=== PATIENT | male | born 1995 | race Two or more races ===

== ENCOUNTER 2021-06-10 05:00 | Emergency (ER) | payer MEDICAID ==
[~2021-06-10] VITALS: Ht 170.2 cm; Wt 62.6 kg
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
--- NOTE | 2021-06-10 05:45 | NUR ---
PATIENT VERBALLY YELLING AND CURSING THREATENING STAFF EMPLOYEES AND [employer] OFFICERS AT BEDSIDE
--- NOTE | 2021-06-10 06:00 | NUR ---
MD AT BEDSIDE, PATIENT BEING VERY AGGRESSIVE TOWARD MEDICAL STAFF AND MAKING THREATENING REMARKS. PATIENT NOT COOPERATING WITH MD SARABIA OR MEDICAL STAFF. PATIENT TRYING TO BREAK OFF BED SIDE RAILS YELLING LOUDLY AND CURSING.
[2021-06-10] MEDS ORDERED: diphenhydrAMINE HCL 50 MG/ML VIAL ONE (06:05)
[2021-06-10] MEDS ORDERED: HALOPERIDOL LACTATE INJ 5 MG/ML VIAL ONE (06:05)
[2021-06-10] MEDS ORDERED: LORAZEPAM INJ 2 MG/ML VIAL ONE (06:20)
[2021-06-10] MEDS ORDERED: LORAZEPAM INJ 2 MG/ML VIAL IM ONE (06:30)
[2021-06-10] MEDS ORDERED: diphenhydrAMINE HCL 50 MG/ML VIAL IM ONE (06:30)
[2021-06-10] MEDS ORDERED: HALOPERIDOL LACTATE INJ 5 MG/ML VIAL IM ONE (06:30)
--- NOTE | 2021-06-10 06:38 | NUR ---
PATIENT DISPLAYING AGGRESSIVE BEHAVIOR TOWARDS STAFF. LAB UNABLE TO DRAW AT THIS TIME.
[2021-06-10] MEDS ORDERED: LIDOCAINE /MPF 1% VIAL 5 ML VIAL ONE (07:40)
--- NOTE | 2021-06-10 07:50 | NUR ---
UNABLE TO SUTURE THE LACERATION PT UNCOOPERTATIVE.
[2021-06-10 07:58] LABS: CALCIUM, SERUM 9.4 mg/dL (8.5-10.1); CARBON DIOXIDE 27 mmol/L (21-32); CHLORIDE 103 mmol/L (98-107); CREATININE 1.2 mg/dL (0.6-1.3); GLUCOSE 97 mg/dL (74-106); POTASSIUM 3.8 mmol/L (3.5-5.1); SODIUM SERUM 140 mmol/L (136-145); UREA NITROGEN, BLOOD 20 mg/dL (7-18)
[2021-06-10 08:04] LABS: BASOPHILS % (AUTO) 0.4 % (0.0-2.0); EOSINOPHILS % (AUTO) 0.1 % (0.0-6.0); HEMATOCRIT 43 % (39-51); LYMPHOCYTES # (AUTO) 1.5 K/uL (0.8-4.8); LYMPHOCYTES % (AUTO) 12.2 % (20.0-44.0); MEAN CORPUSCULAR HGB CONC 35 g/dl (31.0-36.0); MEAN CORPUSCULAR VOLUME 85 fL (80-96); MONOCYTES # (AUTO) 0.8 K/uL (0.1-1.30); MONOCYTES % (AUTO) 6.8 % (2.0-12.0); NEUTROPHILS # (AUTO) 9.8 K/uL (1.8-8.9); NEUTROPHILS % (AUTO) 80.5 % (43.0-81.0); PLATELET COUNT (AUTO) 197 K/uL (150-450); RED BLOOD CELL COUNT(AUTO) 5.05 MIL/uL (4.5-6.0); WHITE BLOOD COUNT (AUTO) 12.2 K/uL (4.3-11.0)
[2021-06-10 08:05] LABS: ALANINE AMINOTRANSFERASE 26 U/L (12-78); ALBUMIN 4.3 g/dL (3.4-5.0); ALCOHOL, BLOOD < 3 mg/dL (0-0); ALKALINE PHOSPHATASE 93 U/L (46-116); ASPARTATE AMINOTRANSFERASE 46 U/L (15-37); BILIRUBIN,DIRECT 0.1 mg/dL (0.0-0.2); BILIRUBIN,TOTAL 0.6 mg/dL (0.2-1.0); TOTAL PROTEIN, SERUM 7.6 g/dL (6.4-8.2)
[2021-06-10 08:06] LABS: ACETAMINOPHEN < 2 ug/ml (10-30)
--- NOTE | 2021-06-10 08:36 | NUR ---
CALLED [facility] [phone] NO CAPACITY PER DANN #96.
--- NOTE | 2021-06-10 08:41 | NUR ---
CALLED [facility] JOSÉ MIGUEL GRANGER NO GO
[2021-06-10 08:42] VITALS: BP 116/64
--- NOTE | 2021-06-10 08:44 | NUR ---
CALLED [facility] [phone] JOSÉ MIGUEL [place] SPEAKING WITH DR. SULLIVAN.
--- NOTE | 2021-06-10 08:53 | NUR ---
JOSÉ MIGUEL CALLED FROM [facility] ACCEPTED BY DR. ADAN TO ER PLEASE CALL [phone] FOR REPORT. FAXING FACE SHEET TO [phone]
--- NOTE | 2021-06-10 09:02 | NUR ---
CALLED [facility] ETA 60 MINS.
--- NOTE | 2021-06-10 09:29 | NUR ---
REPORT GIVEN TO GINGER AT [facility]. AWAITING TRANSPORT AMBULANCE.
--- NOTE | 2021-06-10 10:41 | NUR ---
THE PATIENT IS TRANSFERED TO [facility] IN [place] AND VIA [facility]ED AMBULANCE.
== END 2021-06-10 10:43 ==
LOC: ER 05:10
DX: S01.512A Laceration without foreign body of oral cavity, initial encounter (principal); F31.9 Bipolar disorder, unspecified; Z60.2 Problems related to living alone; Y09 Assault by unspecified means; Y93.89 Activity, other specified; Y92.89 Other specified places as the place of occurrence of the external cause; Y99.8 Other external cause status
CPT/HCPCS: 36415; 70450; 70486; 72125; 80048; 80076; 80143; 80320; 85025; 96372 ×2; 99285; A6403; J1200; J1630; J2060; J3490; G0480